=== PATIENT | female | born 1990 ===

== ENCOUNTER 2023-03-13 10:55 | Emergency (ER) | payer OTHER ==
[2023-03-13] MEDS ORDERED: ACETAMINOPHEN 500 MG TAB ONE (11:30)
--- NOTE | 2023-03-13 12:04 | RAD REPORT ---
EXAM DESCRIPTION: RAD - Wrist Left 3 View - 03/13/2023 11:42 am CLINICAL HISTORY: Swelling;Radiculopathy COMPARISON: No comparisons TECHNIQUE: Left wrist, 3 views. FINDINGS: No acute fracture. There is no dislocation or periosteal reaction noted. No suspicious bon y finding. No foreign body or other soft tissue abnormality. IMPRESSION: Negative left wrist examination.
--- NOTE | 2023-03-13 12:08 | ER ---
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 Ebola Screen: Patient denies travel to an Ebola-affected area in the 21 days before illness onset. Risk Assessment: Do you want to hurt yourself or someone else? Patient reports no desire to harm self or others. Onset of symptoms was March 12, 2023. 11:10 Method Of Arrival: Ambulatory ll1 11:10 Acuity: JAMISON 4 ll1 12:25 Coronavirus screen: Client denies travel out of the [place] in the last 14 days. At this ll1 time, the client does not indicate any symptoms associated with coronavirus-19. 12:25 Initial Sepsis Screen: Does the patient meet any 2 criteria? No. Patient's initial ll1 sepsis screen is negative. Triage Assessment: 11:11 General: Appears uncomfortable, Behavior is calm, cooperative, appropriate for age. ll1 Pain: Complains of pain in left wrist. Musculoskeletal: Circulation, motion, and sensation intact. Capillary refill < 3 seconds, Swelling present in left wrist. Injury Description: Bruise. Historical: - Allergies: 11:09 Lisinopril; ll1 - PMHx: 11:09 Hypertensive disorder; ll1 - Immunization history:: Client reports receiving the 2nd dose of the Covid vaccine. - Social history:: Smoking status: Patient denies any tobacco usage or history of. Screenin:24 [facility] ED Fall Risk Assessment (Adult) History of falling in the last 3 months, iw including since admission No falls in past 3 months (0 pts). Abuse screen: Denies threats or abuse. Denies injuries from another. Nutritional screening: No deficits noted. Tuberculosis screening: No symptoms or risk factors identified. Assessment: 11:23 General: Appears in no apparent distress. Behavior is calm, cooperative. Pain: iw Complains of pain in dorsal aspect of left wrist and lateral aspect of left hand. Neuro: Level of Consciousness is awake, alert, obeys commands, Oriented to person, place, time, situation, Moves all extremities. Full function. Cardiovascular: Patient's skin is warm and dry. Respiratory: Respiratory effort is even, unlabored, Respiratory pattern is regular. Derm: Skin is intact, is healthy with good turgor. Musculoskeletal: Range of motion: limited in left wrist Swelling present in left wrist. Vital Signs: 11:18 BP 147 / 82; Pulse 88; Resp 16; Temp 98.7; Pulse Ox 100% ; Pain 8/10; sm8 11:18 Pain Scale: Adult 8 ED Course: 10:56 Patient arrived in ED. am2 10:59 Ricarda Lipscomb FNP-C is PHCP. snw 10:59 Sonja Krishnan MD is Attending Physician. snw 11:09 Arm band placed on Patient placed in an exam room, on a stretcher. ll1 11:11 Triage completed. ll1 11:18 Danyell Henriquez, RN is Primary Nurse. iw 11:24 No provider procedures requiring assistance completed. Patient did not have IV access iw during this emergency room visit. 11:44 Wrist Left (3 View) XRAY In Process Unspecified. EDMS Administered Medications: 11:22 Drug: Acetaminophen PO 1000 mg Route: PO; iw Medication: 11:24 VIS not applicable for this client. iw Outcome: 12:07 Discharge ordered by . snw 12:25 Condition: improved ll1 12:25 Discharge instructions given to patient. ll1 12:25 Discharged to home ll1 12:25 Patient left the ED. ds4 Signatures: Dispatcher [employer] EDMS Ricarda Lipscomb FNP-C FNP-CsnDanyell Salas, RN RN iw Wyatt Mckeon ds4 Elaine Morrison Lynsay, RN RN ll1 Aminah Vogel sm8
--- NOTE | 2023-03-13 12:08 | EDPHYS ---
Physician Documentation [facility] Name: Dariana Thao Age: 33 yrs Sex: Female : 1990 Arrival Date: 03/13/2023 Time: 10:55 Bed 12 Private MD: ED Physician Sonja Krishnan HPI: 03/13 11:17 This 33 yrs old Female presents to ER via Ambulatory with complaints of Wrist Injury. snw 11:17 The patient or guardian reports decreased range of motion, pain, swelling, tenderness. snw The complaints affect the left wrist diffusely. 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 Onset: The symptoms/episode began/occurred suddenly, yesterday. Modifying factors: The symptoms are alleviated by holding still, the symptoms are aggravated by movement, dependent position. Associated signs and symptoms: Pertinent positives:. The patient has not experienced similar symptoms in the past. The patient has not recently seen a physician. Pt is , 8wks at this time. Historical: - Allergies: 11:09 Lisinopril; ll1 - PMHx: 11:09 Hypertensive disorder; ll1 - Immunization history:: Client reports receiving the 2nd dose of the Covid vaccine. - Social history:: Smoking status: Patient denies any tobacco usage or history of. ROS: 11:17 Constitutional: Negative for fever, chills, and weight loss, Eyes: Negative for injury, snw pain, redness, and discharge, ENT: Negative for injury, pain, and discharge, Neck: Negative for injury, pain, and swelling, Cardiovascular: Negative for chest pain, palpitations, and edema, Respiratory: Negative for shortness of breath, cough, wheezing, and pleuritic chest pain, Abdomen/GI: Negative for abdominal pain, nausea, vomiting, diarrhea, and constipation, Back: Negative for injury and pain, : Negative for injury, bleeding, discharge, and swelling, Skin: Negative for injury, rash, and discoloration, Neuro: Negative for headache, weakness, numbness, tingling, and seizure, Psych: Negative for depression, anxiety, suicide ideation, homicidal ideation, and hallucinations. 11:17 MS/extremity: Positive for injury or acute deformity, decreased range of motion, pain, swelling, tenderness, of the left thumb/wrist. Exam: 11:15 Constitutional: This is a well developed, well nourished patient who is awake, alert, snw and in no acute distress. Head/Face: Normocephalic, atraumatic. Eyes: Pupils equal round and reactive to light, extra-ocular motions intact. Lids and lashes normal. Conjunctiva and sclera are non-icteric and not injected. Cornea within normal limits. Periorbital areas with no swelling, redness, or edema. ENT: Nares patent. No nasal discharge, no septal abnormalities noted. Tympanic membranes are normal and external auditory canals are clear. Oropharynx with no redness, swelling, or masses, exudates, or evidence of obstruction, uvula midline. Mucous membranes moist. Neck: Trachea midline, no thyromegaly or masses palpated, and no cervical lymphadenopathy. Supple, full range of motion without nuchal rigidity, or vertebral point tenderness. No Meningismus. Chest/axilla: Normal chest wall appearance and motion. Nontender with no deformity. No lesions are appreciated. Cardiovascular: Regular rate and rhythm with a normal S1 and S2. No gallops, murmurs, or rubs. Normal PMI, no JVD. No pulse deficits. Skin: Warm, dry with normal turgor. Normal color with no rashes, no lesions, and no evidence of cellulitis. Neuro: Awake and alert, GCS 15, oriented to person, place, time, and situation. Cranial nerves II-XII grossly intact. Motor strength 5/5 in all extremities. Sensory grossly intact. Cerebellar exam normal. Normal gait. Psych: Awake, alert, with orientation to person, place and time. Behavior, mood, and affect are within normal limits. 11:15 Musculoskeletal/extremity: Extremities: grossly normal except: noted in the lateral aspect of left hand, dorsal aspect of left wrist, palmar aspect of distal phalanx of left thumb and palmar aspect of proximal phalanx of left thumb: swelling, tenderness, decreased ROM, ROM: limited active range of motion due to pain, limited passive range of motion due to pain, Circulation is intact in all extremities. Sensation intact. Vital Signs: 11:18 BP 147 / 82; Pulse 88; Resp 16; Temp 98.7; Pulse Ox 100% ; Pain 8/10; sm8 11:18 Pain Scale: Adult sm8 MDM: 11:08 Patient medically screened. snw 12:10 Differential diagnosis: dislocation, closed fracture, tendonitis, sprain. Data snw reviewed: vital signs, nurses notes. I considered the following discharge prescriptions or medication management in the emergency department Medications were administered in the Emergency Department. See MAR. Counseling: I had a detailed discussion with the patient and/or guardian regarding: the historical points, exam findings, and any diagnostic results supporting the discharge/admit diagnosis, radiology results, the need for outpatient follow up, to return to the emergency department if symptoms worsen or persist or if there are any questions or concerns that arise at home. Special discussion: I have referred the patient to see his PCP for further evaluation of high blood pressure. Based on the history and exam findings, there is no indication for further emergent testing or inpatient evaluation. I discussed with the patient/guardian the need to see the OB Gyne specialist for further evaluation of the symptoms. I discussed with the patient/guardian the need to see the orthopedic surgeon for further evaluation of the symptoms. I discussed with the patient/guardian the need to see the primary care provider for further evaluation of the symptoms. 03/13 11:11 Order name: Wrist Left (3 View) XRAY; Complete Time: 12:05 snw 03/13 11:11 Order name: Thumb Spica Splint; Complete Time: 12:12 snw Administered Medications: 11:22 Drug: Acetaminophen PO 1000 mg Route: PO; iw Disposition: 15:38 STAFF ATTESTATION: The patient's history, exam findings, diagnostics and a summary of sd2 any interventions or procedures was reviewed in detail with the GLENIS. I personally interviewed and examined the patient, and I have reviewed and agree with the HPI and exam. My personal exam shows a nontoxic female resting comfortably in NAD, ambulatory without difficulty with thumb spica splint in place to affected arm. I confirm the diagnosis as documented by the GLENIS. I have reviewed and agree with the care plan articulated in the disposition section. Sonja Krishnan MD. Disposition Summary: 03/13/23 12:07 Discharge Ordered Location: Home snw Condition: Stable snw Diagnosis - Other sprain of left thumb snw - state, incidental snw Followup: snw - With: Emergency Department - When: As needed - Reason: Worsening of condition Followup: snw - With: Private Physician - When: 5 - 6 days - Reason: Recheck today's complaints, Continuance of care, Re-evaluation by your physician Discharge Instructions: - Discharge Summary Sheet snw - Cast or Splint Care, Adult snw - Musculoskeletal Pain snw - RICE Therapy for Routine Care of Injuries snw - Thumb Sprain snw - How to Use Cold Therapy snw - Preventing Injuries During snw Forms: - Medication Reconciliation Form snw - Thank You Letter snw - Antibiotic Education snw - Prescription Opioid Use snw - Patient Portal Instructions snw Signatures: Dispatcher [employer] EDMS Ricarda Lipscomb, JOSE ARMANDO-C IT DESKTOP SUPPORT TECHNICIAN-Csnw Danyell Henriquez RN RN iw Leilani Valentine RN RN ll1 Sonja Krishnan MD MD sd2
[2023-03-13 12:45] VITALS: BP 147/82; TEMP 98.7; O2SAT 100
== END 2023-03-13 12:25 | disposition home or self-care (01) ==
LOC: ER 10:55
DX: S63.682A Other sprain of left thumb, initial encounter (principal); Z33.1 Pregnant state, incidental; I10 Essential (primary) hypertension
CPT/HCPCS: 99283